=== PATIENT | female | born 1970 | race Caucasian/White ===

== ENCOUNTER → 2017-09-16 07:02 | Outpatient (CLI) | payer BC, SELFPAY ==
--- NOTE | 2017-09-16 07:05 | BI_ITS ---
MAMMOGRAPHY - BILATERAL SCREENING 3-D ZEHRA SYNTHESIS REASON FOR EXAM: Female, 47 years old. Bilateral Screening 3-D tomosynthesis PERTINENT HISTORY: Family history breast carcinoma, mother age 55. TECHNIQUE: 2-D mammograms and 3-D Zehra synthesis of the breast (s) were performed. CAD was performed. COMPARISON: 10/14/2015, 09/10/2012 FINDINGS: The breast composition is composed of scattered fibroglandular density. No new asymmetric density, dominant mass, dense spiculated masses, abnormal clustered microcalcifications, architectural distortion, skin thickening or nipple retraction identified. Coarse benign-appearing calcifications. There has been no significant change since the prior study. BI/SCREENING MAMM (CAD), BILAT IMPRESSION: No mammographic signs of malignancy. Routine yearly mammograms recommended. ASSESSMENT CATEGORY: BIRADS Category 2: Benign. A letter regarding these results will be sent to the patient by the facility within 30 days. FOLLOW UP RECOMMENDATION: Yearly follow up mammogram recommended. (A) Negative results should not deter biopsy as a palpable lesion should be followed on clinical grounds and biopsy performed if clinically persistent for 3 months or increasing size. Approximately 10% of breast cancers are not detected by mammography. A normal mammogram should not delay biopsy of a clinically suspicious abnormality. Electronically Signed: Bubba Gray, at 20:17 EDT Tel , Service support ,
== END ==
PROVIDERS: Family Provider Internal Medicine; PCP Internal Medicine; Visit Provider Internal Medicine
DX: Z12.31 Encounter for screening mammogram for malignant neoplasm of breast (principal)
CPT/HCPCS: 77063; 77067

== ENCOUNTER → 2020-06-24 07:01 | Outpatient (CLI) | payer BC, SELFPAY ==
--- NOTE | 2020-06-24 07:04 | BI_ITS ---
MAMMOGRAPHY - BILATERAL SCREENING REASON FOR EXAM: Female, 49 years old. Routine annual screening examination. PERTINENT HISTORY: Mother with breast cancer. TECHNIQUE: Digital bilateral breast zehra (3D mammographic acquisition) in the CC and MLO projections. 2-D mediolateral oblique (MLO) and craniocaudad (CC) views of both breasts were obtained. CAD: Full Field Digital Mammography with Computer Added Detection was performed. COMPARISON: Comparison is made with prior study dated 09/16/2017 and 09/10/2012. FINDINGS: Breast Composition: There are scattered areas of fibroglandular density. There are no dominant masses or suspicious calcifications. No other significant abnormalities are identified. There has been no significant change since the prior study. BI/SCRN MAMM (CAD)W/ZEHRA BILAT IMPRESSION: Stable bilateral screening mammogram. Yearly follow-up mammogram recommended. (A) ASSESSMENT CATEGORY: BIRADS Category 2: Benign. A letter regarding these results will be sent to the patient by the facility within 30 days. Approximately 10% of breast cancers are not detected by mammography. A normal mammogram should not delay biopsy of a clinically suspicious abnormality. [id number] Electronically Signed: Jimmy Cruz MD at 9:02 EDT , Service support ,
--- NOTE | 2020-06-24 07:23 | ECHOD_ITS ---
Reason For Study: CHEST TIGHTNESS Procedure This was a 2D Doppler, Color Flow transthoracic echocardiogram. The exam was of adequate technical quality. Exam performed in department. Left Ventricle Normal LV size. Left ventricular systolic function is normal. The estimated ejection fraction is 60 %. Transmitral doppler flow suggestive of impaired relaxation of left ventricle. No regional wall motion abnormalities noted. Right Ventricle Normal RV size. Normal systolic function. Atria Normal left atrium. Normal right atrium. No doppler evidence for ASD. Mitral Valve There is no mitral annular calcification. Normal mitral valve. Mild (1+) mitral valve insufficiency. Tricuspid Valve Normal tricuspid valve. Mild (1+) tricuspid valve insufficiency. Right ventricular systolic pressure estimated to be 31 mmHg. Aortic Valve Trisinus/trileaflet aortic valve. Normal aortic valve. Pulmonic Valve The pulmonic valve is not well visualized. Great Vessels Normal sized aortic root. Pericardium/Pleural No pericardial effusion. MMode/2D Measurements & Calculations LVIDd: 4.6 cm IVSd: 0.71 cm Ao root diam: 3.0 cm LVIDs: 2.9 cm LVPWd: 0.72 cm RVDd: 3.1 cm FS: 38.1 % LAV(MOD-bp): 41.1 ml LVAd ap4: 27.2 cm2 LVAd ap2: 25.2 cm2 LAV(MOD-bp) Indexed: 21.1 ml/m2 LVLd ap4: 7.3 cm LVLd ap2: 7.3 cm LAV(MOD-sp2): 39.8 ml EDV(MOD-sp4): 85.7 ml EDV(MOD-sp2): 75.3 ml LAV(MOD-sp4): 42.1 ml EDV(sp4-el): 85.8 ml EDV(sp2-el): 73.7 ml LVAs ap4: 15.1 cm2 LVAs ap2: 13.6 cm2 LVLs ap4: 5.8 cm LVLs ap2: 5.9 cm ESV(MOD-sp4): 32.7 ml ESV(MOD-sp2): 27.1 ml ESV(sp4-el): 33.4 ml ESV(sp2-el): 26.6 ml EF(MOD-sp4): 61.9 % EF(MOD-sp2): 64.0 % EF(sp4-el): 61.0 % SV(MOD-sp4): 53.1 ml SV(MOD-sp2): 48.2 ml SV(sp4-el): 52.3 ml LA dimension(2D): 3.5 cm LA A4 area: 17.2 cm2 RA A4 area: 12.5 cm2 Time Measurements MV dec time: 0.23 sec Doppler Measurements & Calculations MV E max braxton: 77.5 cm/sec Lat Peak E' Braxton: 11.8 cm/sec Med Peak E' Braxton: 9.8 cm/sec MV A max braxton: 85.4 cm/sec E/E' lat: 6.6 E/E' med: 7.9 MV E/A: 0.91 Ao V2 max: 136.4 cm/sec LV V1 max: 107.3 cm/sec PA V2 max: 87.5 cm/sec Ao max P.4 mmHg LV V1 max P.6 mmHg TR max braxton: 265.5 cm/sec TR max P.3 mmHg ECHO/Echo Complete Interpretation Summary Left ventricular systolic function is normal. The estimated ejection fraction is 60 %. Mild (1+) mitral valve insufficiency. Mild (1+) tricuspid valve insufficiency. Right ventricular systolic pressure estimated to be 31 mmHg. Transmitral doppler flow suggestive of impaired relaxation of left ventricle Ordering Physician: Karishma Gutierrez Referring Physician: Karishma Gutierrez Performed By: Lakshmi Bradley, RDCS, RVT
== END ==
PROVIDERS: PCP Internal Medicine; Referring Provider Internal Medicine; Visit Provider Internal Medicine
DX: Z12.31 Encounter for screening mammogram for malignant neoplasm of breast (principal); R07.89 Other chest pain
CPT/HCPCS: 77063; 77067; 93306

== ENCOUNTER → 2020-09-05 17:14 | Outpatient (CLI) | payer BC, SELFPAY ==
[2020-09-05 14:47] VITALS: BMI 32.9
[2020-09-12 21:02] LABS: HPV APTIMA, High Risk Negative (Negative)
== END ==
PROVIDERS: PCP Internal Medicine; Referring Provider Nurse Practitioner Women's Health; Visit Provider Nurse Practitioner Women's Health
DX: Z12.4 Encounter for screening for malignant neoplasm of cervix (principal)
CPT/HCPCS: 87624; 88175; G0145

== ENCOUNTER → 2020-09-07 18:22 | Outpatient (CLI) | payer BC, SELFPAY ==
[2020-09-05 14:47] VITALS: BMI 32.9
--- NOTE | 2020-09-07 18:24 | US_ITS ---
STUDY: ULTRASOUND OF THE FEMALE PELVIS - COMPLETE REASON FOR EXAM: Female, 50 years old. ENLARGED UT-aub LMP: 08/28/2020. TECHNIQUE: Transabdominal and Transvaginal TECHNICAL QUALITY: Adequate. COMPARISON: None. FINDINGS: The uterus is anteverted and is tilted to the left side of the pelvis. The uterus measures 12.4 cm x 8.1 cm x 6 cm. Normal uterine cervix. The endometrium measures 15 mm in thickness, and is hyperechoic. 3 fibroids are seen. The largest is in the mid body of the uterus and measures 2.9 cm x 3.9 cm x 2.7 cm. I.U.D. - The patient does not have an I.U.D. The right ovary is visualized. The right ovary measures 3 cm x 2.4 cm x 1.3 cm. There is no right ovarian cyst or ovarian mass. There is no visualized right adnexal mass or complex lesion. There is normal arterial and normal venous vascularity. The left ovary is visualized. The left ovary measures 1.9 cm x 1.7 cm x 1.5 cm. There is no left ovarian cyst or ovarian mass. There is no visualized left adnexal mass or complex lesion. There is normal arterial and normal venous vascularity. There is no fluid in the cul-de-sac. The pre void volume of the bladder was 496 ml. US/Pelvic (Non ) IMPRESSION: Enlarged fibroid uterus. 3. Uterine fibroids. Electronically Signed: Jimmy Cruz MD at 21:41 EDT , Service support ,
--- NOTE | 2020-09-07 18:25 | US_ITS ---
STUDY: ULTRASOUND OF THE FEMALE PELVIS - COMPLETE REASON FOR EXAM: Female, 50 years old. ENLARGED UT-aub LMP: 08/28/2020. TECHNIQUE: Transabdominal and Transvaginal TECHNICAL QUALITY: Adequate. COMPARISON: None. FINDINGS: The uterus is anteverted and is tilted to the left side of the pelvis. The uterus measures 12.4 cm x 8.1 cm x 6 cm. Normal uterine cervix. The endometrium measures 15 mm in thickness, and is hyperechoic. 3 fibroids are seen. The largest is in the mid body of the uterus and measures 2.9 cm x 3.9 cm x 2.7 cm. I.U.D. - The patient does not have an I.U.D. The right ovary is visualized. The right ovary measures 3 cm x 2.4 cm x 1.3 cm. There is no right ovarian cyst or ovarian mass. There is no visualized right adnexal mass or complex lesion. There is normal arterial and normal venous vascularity. The left ovary is visualized. The left ovary measures 1.9 cm x 1.7 cm x 1.5 cm. There is no left ovarian cyst or ovarian mass. There is no visualized left adnexal mass or complex lesion. There is normal arterial and normal venous vascularity. There is no fluid in the cul-de-sac. The pre void volume of the bladder was 496 ml. US/Transvaginal Non- IMPRESSION: Enlarged fibroid uterus. 3. Uterine fibroids. Electronically Signed: Jimmy Cruz MD at 21:41 EDT , Service support ,
== END ==
PROVIDERS: PCP Internal Medicine; Visit Provider Nurse Practitioner Women's Health
DX: N85.2 Hypertrophy of uterus (principal)
CPT/HCPCS: 76830; 76856

== ENCOUNTER → 2020-09-26 11:55 | Outpatient (CLI) | payer BC, SELFPAY ==
[2020-09-26 10:40] VITALS: BMI 32.9
[2020-09-26 12:28] LABS: Absolute Lymphocyte Count 1.74 X10^3/uL (0.83-4.51); Absolute Neutrophil Count 4.4 X10^3/uL (2.0-7.7); Basophil# 0.04 X10^3/uL; Basophil% 0.6 % (0-1); Eosinophil# 0.08 X10^3/uL; Eosinophils% 1.2 % (0-5); Hematocrit 42.2 % (37-47); Hemoglobin 14.1 g/dL (12.0-15.0); Lymphocyte # 1.74 X10^3/ul (0.83-4.51); Lymphocyte % 25.5 % (19-41); Mean Corp Hgb Conc 33.4 g/dL (32-36); Mean Corpuscular Hgb 31.8 pg (27.0-32.0); Mean Platelet Vol. 9.5 fl (6.2-12.0); Monocyte# 0.55 X10^3/uL; Monocyte% 8.1 % (0-10); NRBC Flagged by Analyzer 0 % (0-5); Neutrophil % 64.3 % (47-70); Platelet Count 385 K/mm3 (150-450); RBC Distribution Width CV 12.5 % (11.6-14.6); RBC Distribution Width SD 43.8 fl (35.1-43.9); Red Blood Count 4.44 M/mm3 (4.2-5.4); White Blood Count 6.8 K/mm3 (4.4-11.0)
[2020-09-26 13:04] LABS: NATERA MAILED SPECIMEN
[2020-09-26 13:12] LABS: Thyroid Stim Hormone (TSH) 2.12 uIU/mL (0.358-3.74)
== END ==
PROVIDERS: PCP Internal Medicine; Referring Provider Obstetrics & Gynecology; Visit Provider Obstetrics & Gynecology
DX: N92.0 Excessive and frequent menstruation with regular cycle (principal); Z80.3 Family history of malignant neoplasm of breast; Z80.42 Family history of malignant neoplasm of prostate; Z80.0 Family history of malignant neoplasm of digestive organs
CPT/HCPCS: 36415; 84443; 85025

== ENCOUNTER 2020-11-08 10:01 | Day surgery (SDC) | payer BC, SELFPAY ==
[2020-09-26 10:40] VITALS: BMI 32.9
--- NOTE | 2020-11-03 12:04 | EKG12_ITS ---
Test Reason : PRE OP Blood Pressure : / mmHG Vent. Rate : 078 BPM Atrial Rate : 078 BPM P-R Int : 112 ms QRS Dur : 084 ms QT Int : 372 ms P-R-T Axes : 049 054 054 degrees QTc Int : 424 ms Normal sinus rhythm Normal ECG Confirmed by YOLANDA CAI, CARLOS ([id number]), newspaper photo editor SHANELL LINCOLN ([id number]) on 11/04/2020 1:19:33 PM Referred By: SARY Confirmed By:MICHELE GUERRERO MD
[2020-11-03 12:38] LABS: Absolute Lymphocyte Count 2.13 X10^3/uL (0.83-4.51); Basophil# 0.05 X10^3/uL; Basophil% 0.6 % (0-1); Eosinophil# 0.06 X10^3/uL; Eosinophils% 0.8 % (0-5); Hematocrit 42.7 % (37-47); Hemoglobin 14.6 g/dL (12.0-15.0); Lymphocyte # 2.13 X10^3/ul (0.83-4.51); Lymphocyte % 26.8 % (19-41); Mean Corp Hgb Conc 34.2 g/dL (32-36); Mean Corpuscular Hgb 32.4 pg (27.0-32.0); Mean Corpuscular Volume 94.9 fL (81-99); Mean Platelet Vol. 9.7 fl (6.2-12.0); Monocyte# 0.71 X10^3/uL; Monocyte% 8.9 % (0-10); NRBC Flagged by Analyzer 0 % (0-5); Neutrophil # 4.99 X10^3/uL (2.7-7.7); Neutrophil % 62.6 % (47-70); Platelet Count 378 K/mm3 (150-450); RBC Distribution Width CV 12.5 % (11.6-14.6); RBC Distribution Width SD 43.2 fl (35.1-43.9)
[2020-11-03 13:02] LABS: Magnesium 1.9 mg/dL (1.6-2.6)
[2020-11-03 13:05] LABS: ALB/GLOB Ratio 0.9 RATIO (0.9-2.4); AST(SGOT) 12 U/L (15-37); Alanine Aminotransfer ALT/SGPT 19 U/L (13-56); Albumin, Serum 3.4 g/dL (3.2-5.0); Alkaline Phosphatase 60 U/L (45-117); Anion Gap 3 (5-15); BUN 16 mg/dL (7-18); BUN/Creat Ratio 22.1 RATIO (10-20); Calcium,Total 9.4 mg/dL (8.5-10.1); Chloride 103 mmol/L (98-107); Creatinine, Serum 0.72 mg/dL (0.55-1.02); EST Glomerular Filtration Rate 90 mL/min (>60); Est Glom Filt Rate - Afr Amer 109 mL/min (>60); Globulin 3.9 g/dL (2.2-4.2); Glucose 104 mg/dL (74-106); Potassium 3.5 mmol/L (3.5-5.1); Protein, Total 7.3 g/dL (6.4-8.2); Sodium Level 136 mmol/L (136-145)
[2020-11-08] VITALS (8 sets, daily range): BP systolic 106–132; BP diastolic 57–87; PULSE 64–81; RESP 16–18; TEMP 35.8–37.3; O2SAT 97–100; BMI 32.5
--- NOTE | 2020-11-08 00:07 | PCM.HP.BLA ---
History and Physical Date of Admission: 11/08/20 Intake Vital Signs 10/28/20 14:05 Height 5 ft 5 in Weight: 195 lb BMI 32.4 BP 142/80 H Intake Visit Reasons: [facility] Is patient in pain?: No Allergies acetaminophen [From Percocet] Allergy (Verified 10/28/20 14:06) Hives amoxicillin Allergy (Verified 10/28/20 14:06) Hives Iodinated Contrast Media [Iodinated Contrast- Oral and IV Dye] Allergy (Verified 10/28/20 14:06) Laryngospasms oxycodone [From Percocet] Allergy (Verified 10/28/20 14:06) Hives Medications nebivolol 2.5 mg tablet 2.5 mg PO DAILY 10/28/20 [History Confirmed 10/28/20] Is last menstrual period known: No Patient : No : No [facility] Medical History (Updated 10/04/20 @ 15:36 by Deborah Yao) Abnormal uterine bleeding Genetic testing History of abnormal cervical Pap smear Surgical History S/P S/P cholecystectomy Family History Mother Breast cancer Father Myocardial infarction Grandmother CVA (cerebral vascular accident) Colon cancer Grandfather Prostate cancer Hypertension Social History Smoking Status: Never smoker alcohol intake: current details: occasionally substance use type: does not use caffeine: Yes what type of physical activity do you participate in: walking and weight training frequency: 3-4 times per week seatbelt use: always do you feel safe at home: Yes additional social history: Boyfriend HPI [facility] Details: SHEILA FINCH is a 50 year old who presents for preop visit, planning [facility] for enlarged fibroid uterus and abnormal uterine bleeding. Female Reproductive History Menopausal Symptoms: No hot flashes, No night sweats, No difficulty concentrating and No change in libido Pregancy History 3 Elective abortions Hx Para 3 Spontaneous abortions Hx # Term Pregnancies Ectopic pregnancies Hx # Pregnancies Multiple births # of living children Past Pregnancies Del. Date Name GA/Weeks Outcome Route Bth Weight Gen Labor Lgth Anesthesia Del Locatn Provider FOB Unknown [place] Unknown Elizabeth Unknown [place] ROS Const Constitutional: Denies night sweats, weight gain or weight loss ENT ENT: Reports system reviewed and no additional complaints, except as documented Cardio Card: Denies chest pain Resp Resp: Denies cough or dyspnea GI GI: Reports as per HPI; Denies constipation, nausea or vomiting : Reports as per HPI; Denies hot flashes, nipple discharge, vaginal discharge, vaginal dryness, vaginal odor or vaginal pruritus Musc Musc: Denies arthralgias, back pain or muscle weakness Skin Skin/Breast: Denies alopecia, change in hair, dry skin, breast mass, breast pain, breast skin changes or nipple discharge Neuro Neuro: Reports system reviewed and no additional complaints, except as documented Psych Psych: Reports system reviewed and no additional complaints, except as documented; Denies change in libido or difficulty concentrating Endo Endo: Denies cold intolerance, excessive sweating, heat intolerance or polydipsia Gagan/Lymph Hematologic/Lymphatic: Denies easy bleeding, Denies easy bruising and Denies lymphadenopathy Exam Const General: cooperative, healthy appearing, comfortable, no acute distress and well developed Orientation: alert [facility] Head: normal to inspection and normocephalic Ears: hearing grossly normal bilaterally and external ears normal Nose: external nose normal and nares normal Face and sinus: normal facial exam Neck Neck: normal visual inspection and no lymphadenopathy Thyroid: thyroid normal Chest Chest palpation & inspection: normal inspection of the chest Resp Effort & Inspection: normal respiratory effort Auscultation: clear to auscultation bilaterally Cardio Rate: regular rate Rhythm: regular rhythm Heart Sounds: S1 normal and S2 normal GI Inspection: normal to inspection and non-distended Palpation: soft and no hepatosplenomegaly General: bladder normal to palpation External Female Exam: normal external appearance and normal appearance of the urethra Urethra: normal appearance of the urethra, normal palpation and no discharge Speculum Exam - Vagina: normal appearance of the vagina and normal vaginal discharge Speculum Exam - Cervix: normal appearance of the cervix and nontender Bimanual Exam- Vagina & Uterus: uterine size normal, bladder normal to palpation, No tender, normal palpation, non-tender, enlarged (12-week size) and nodular Bimanual Exam- Adnexa, other: normal adnexae, adnexae mobile, no masses and normal Pelvic Support: normal Musc Other: gross motor intact no deficits, full bilateral strength Skin General: no rashes or lesions noted Neuro General: patient alert, patient awake, moves all extremities and no focal motor deficits Motor: muscle tone normal throughout Extrem General: normal to inspection and no pedal edema Psych Appearance: grossly normal Mental Status: mental status grossly normal Affect: normal affect Speech and Movement: speech and movement normal Coding Level of Care Code No Charge Diagnoses Abnormal uterine bleeding N93.9 Genetic testing Z13.79 Enlarged uterus N85.2 Assessment and Plan Assessment and Plan (1) Abnormal uterine bleeding: Status: Acute Comment: sec to fibroids, discussed medical vs surgical options, plan LAVH BS. unable to get EMB. cbc tsh ordered (2) Genetic testing: Status: Acute Comment: Empower nl (3) Enlarged uterus: Status: Acute Comment: 12 week size with 3 fibroids 3 cm and less Plan - Dr. Lorenza Denson MD: After discussing the patient's diagnosis and treatment plan options, patient wishes to proceed with surgical management. I have discussed with the patient the risks, benefits, and alternatives of the procedure which include but are not limited to risks of anesthesia, bleeding, infection, possible damage to bowel, bladder, or surrounding vasculature which could lead to additional surgery to evaluate any complications. Patient agrees to procedure and wishes to proceed. ACOG/uptodate references given for additional information regarding procedure. UPDATE- I have seen the patient and performed any clinically relevant updates to the history and physical exam. Lorenaz Denson MD
[2020-11-08] MEDS: Celecoxib 200 MG Capsule 400 MG PO (10:56)
[2020-11-08] MEDS: Phenazopyridine 95 MG Tablet 190 MG PO (10:56)
[2020-11-08] MEDS: Scopolamine 1mg/72hr Patch 1 PATCH TD (10:57)
[2020-11-08] MEDS: Gabapentin 600 MG Tablet PO (10:57)
[2020-11-08] MEDS: Acetaminophen 500 MG Tablet 1000 MG PO ×2 (10:57→18:08)
[2020-11-08] MEDS: dexAMETHasone 10 MG/ML Vial 8 MG IV (10:58)
[2020-11-08] MEDS: Enoxaparin 40 MG/0.4 ML Syringe SC (10:58)
[2020-11-08 10:59] LABS: Internal QC Validated? YES +Cl - CLEAR BKGD; Pregnancy, Urine Negative Negative
[2020-11-08 11:06] LABS: Bedside Glucose 108 mg/dL (70-110)
[2020-11-08] MEDS: Lactated Ringers 1,000 ML 100 ML IV ×3 (11:06→15:19)
--- NOTE | 2020-11-08 12:00 | HYST_PTH ---
PATIENT: SHEILA FINCH LOC: [facility] [place] U#:[id number] AGE/SX: 50/F ROOM: RE11/08/[address]: Dr. Lorenza Denson MD : 1970 BED: DIS: 11/09/2020 SPEC #: [id number] RECD: 11/08/20 15:34 STATUS: TED SOLIS #: [id number] URIEL: 11/08/20 12:[address]: Lorenza Denson DEPT: SURGICAL PATHOLOGY RECD BY: Roscoe Sharma ENTERED: 11/09/20 12:04 SP TYPE: HYSTERECT OTHR DR: Dr. Karishma Gutierrez DO Tissues: Uterus, NOS Procedures: Surgery Specimen Level V HEADER OPERATION: ERAS, hysterectomy, LAVH, salpingectomy PRE-OP DIAGNOSIS: Abnormal uterine bleeding, genetic testing, enlarged uterus, fibroids TISSUE SUBMITTED: Uterus, cervix and bilateral fallopian tubes MICROSCOPIC DIAGNOSIS Uterus, cervix and bilateral fallopian tubes, hysterectomy and bilateral salpingectomy: Cervix ? mild chronic cystic cervicitis. Endometrium ? secretory endometrium. Myometrium ? adenomyosis. - An intramural leiomyoma (1 cm in greatest dimension). Bilateral fallopian tubes - no pathologic diagnosis. SJ:rg 11/10/2020 MICROSCOPIC DESCRIPTION Slides are reviewed. GROSS DESCRIPTION Received in fixative is one container labeled with the patient's name and designated uterus, cervix and bilateral fallopian tubes. The specimen consists of a previously, partially opened hysterectomy specimen consisting of uterus with cervix and attached bilateral fallopian tubes. The uterus with cervix weighs 167 gm and measures 11 x 8 x 6 cm. The serosal surface is ortiz, glistening. The ectocervical mucosa is unremarkable. The external os contour cannot be assessed due to previously opened nature of the specimen. The endocervical canal measures 3.5 cm in length and the endocervical mucosa is ortiz, glistening and unremarkable. Sections of the cervix reveal a few cysts filled with mucoid material. The triangular endometrial cavity measures 6 cm in length and up to 3.5 cm in width. The endometrial cavity is distorted due to the presence of previously opened nature of the specimen. The endometrium measures 0.2 cm in thickness. Sections of the uterine wall reveal one nodular mass measuring 1 cm in greatest dimension. The uterine wall measures up to 3 cm in thickness. Sections reveal trabeculated cut surfaces suspicious for adenomyosis. The right fallopian tube measures 6 cm in length and 0.7 cm in diameter. Sections reveal unremarkable cut surfaces. The left fallopian tube measures 5 cm in length and up to 1 cm in diameter with similar appearance to right. Cfo Controller sections are submitted in nine cassettes as follows: 1 - anterior cervix, 2 - posterior cervix, 3 & 4 - anterior uterine wall, 5 & 6 - posterior uterine wall, 7 - nodular mass, 8 - right fallopian tube, 9 - left fallopian tube. / ANA MARIA:thuy 11/09/20 TC:5 CPT: 56416
[2020-11-08] MEDS: Cefazolin 2 GM in 0.9% Normal Saline 100 ML IV (12:29)
[2020-11-08] MEDS: Bupivacaine 0.25% 30 ML Vial (12:43)
[2020-11-08] MEDS: Vasopressin 20 UNITS/ML Vial (12:43)
--- NOTE | 2020-11-08 14:22 | RAD_ITS ---
STUDY: X-RAY - ABDOMEN/PELVIS REASON FOR EXAM: Female, 50 years old. PT HERE FOR PELVIC SURGERY. NEEDLE COUNT WAS INCORRECT. BEST PICTURES DUE TO KEEPING STERILE FIELD TECHNIQUE: Two AP supine views of the abdomen and pelvis. COMPARISON: None. FINDINGS: Postoperative air is seen throughout the abdomen and pelvis. A 4.99 cm metallic needle is seen in the right upper quadrant overlying the right side of the 11th vertebral body and a portion of the liver. Surgical clamps are seen overlying the pubic symphysis and lower pelvis. Normal visualized lung bases. Normal visualized osseous structures. RAD/Abdomen Single View IMPRESSION: * A 4.99 cm metallic needle is seen in the right upper quadrant overlying the right side of the 11th vertebral body and a portion of the liver. * Surgical clamps are seen overlying the pubic symphysis and lower pelvis. * Postoperative air is seen throughout the abdomen and pelvis. Electronically Signed: Bakari Perez MD at 23:02 EDT , Service support ,
--- NOTE | 2020-11-08 14:42 | OP.PCM_ITS ---
Problems Associated Problem List Diagnoses (1) Abnormal uterine bleeding: (2) Enlarged uterus: Report of Operation Pre-Operative Diagnosis: AUB Post-Operative Diagnosis: same Surgery/Procedure Performed:: LAVHBS Type of Anesthesia: General Specimen's removed: uterus, tubes Drains: starkey Fluids Replaced: crystalloid Description of Procedure: Patient received preoperative antibiotics and SCDs were on preoperatively. Patient was taken back to the operating room and placed in the dorsal lithotomy position. General anesthesia was induced and patient was prepped and draped in normal sterile fashion. Uterine manipulator was placed inside the uterus and Starkey catheter placed in the bladder. The umbilicus was grasped with towel clamps and an intraumbilical incision was made after injecting with quarter percent Marcaine and a Veress needle entered into the abdomen confirmed to be intra-abdominal with a low opening pressure. Abdomen was insufflated with CO2 gas and the Veress needle removed and the 5 mm trocar was placed under direct visualization without complication. Right and left lower quadrants were transilluminated and injected with quarter percent Marcaine and 5 mm ports placed under direct visualization. Pelvis was well visualized see operative findings for additional information. Bilateral fallopian tubes were identified and transected with the LigaSure device across the mesosalpinx to the level of the utero-ovarian ligament which was also transected with the LigaSure device.Extensive scar tissue was encountered and taken down sharply and with hydrodissection and monopolar energy. The broad ligament was opened up by transecting the round ligament bilaterally and skeletonizing the uterine vessels bilaterally and creating a bladder flap using the LigaSure device. The uterine arteries were transected bilaterally with good visualization of the bladder and the ureters were seen to be inferior lateral to the operative area. Attention was then paid to the vaginal portion of the procedure and the cervix was grasped with Leland clamps and circumferentially injected with dilute vasopressin. A circumferential incision was made and the vaginal mucosa was mobilized off posteriorly and the cul-de-sac entered into sharply and a longneck speculum placed. The anterior cul-de-sac was then identified and entered into sharply. The uterosacral ligaments were clamped cut and suture ligated with 0 Monocryl bilaterally followed by the cardinal ligaments which were clamped cut and suture ligated bilaterally with 0 Monocryl. The uterus serially descended and was removed without difficulty. Pelvic sidewall pedicles were checked and noted to have excellent hemostasis. The vagi nal mucosa was reapproximated incorporating the posterior peritoneum. This was reapproximated using 0 Vicryl [id number] sutures. Excellent hemostasis was noted. The cystoscopy was then performed and bilateral ureteral strong spray was noted and the bladder was noted to have no abnormality or lesions seen. Starkey catheter was replaced and then attention paid to the abdominal portion of the procedure again. The pelvis and cul-de-sac were well visualized and no significant active bleeding noted but some raw areas were seen on the peritoneum and therefore Sorin was applied. Pressure was taken down and the areas visualized and noted of excellent hemostasis. All ports were removed under direct visualization without complication and the abdomen was desufflated of air. The instruments were removed from the abdomen and the vaginal sweep was negative. Port sites on the abdomen were closed with 4-0 Monocryl interrupted sutures and Steri's and windows were applied. She was awoken and taken recovery in stable condition. Grafts/Implants Used: none Complications none Admit VTE Documentation VTE Present on Admission: No VTE Mechan Device Prophylaxis: SCD's VTE Pharm Prophylaxis ordered?: Yes Procedures Urinary/Genital 52xxx-59xxx: [id number] LAVH+BS/O <250gr Uterus
--- NOTE | 2020-11-08 14:45 | PCM.DC ---
Discharge Instructions Diet Discharge Diet: No restrictions Activity May resume sexual activity in: 6 weeks Weight Bearing Status: Full weight bearing Dressing / Incision Call your doctor if your incision/area has: Continuous Slow Oozing, Sudden Increased Bleeding, Increased Pain/ Swelling, Increased Redness and Foul Smelling Discharge Call your doctor if you observe: Fever of 101 or Higher, Using more than 1 pad per hour, Shortness of breath, Chest pain and Uncontrolled pain Suture Line Care: Avoid Pulling/Pushing and Avoid Pinching/Bending Remove Dressing in: 1 week (if present) Cleanse incision/area with: Soap & Water and Keep Dressing Clean & Dry Follow Up Care Please Follow Up With: Lorenza Denson MD When: Call to make an appointment with your doctor for a postop visit in 2 and 6 weeks. Test Results: Test results from this visit will be discussed in further detail at your follow-up appointment, if applicable. Discharge Plan Admission Primary Reason for Your Visit: hysterectomy Attending Provider: Lorenza Denson Primary Care Provider: Karishma Gutirerez Discharge Orders/Prescriptions Prescriptions: New naproxen 250 MG tablet 250 - 500 mg PO Q8H PRN PRN (Reason: MILD PAIN) Qty: 30 RF: 1 Continued nebivolol [Bystolic] 2.5 mg tablet 2.5 mg PO DAILY RF: 0 hydrochlorothiazide 25 mg tablet 25 mg PO DAILY RF: 0 Referrals / Follow Up: Karishma Gutierrez DO [Primary Care Provider] - Disposition Disposition (needs filled in before D/C Order can be placed): Home, Self Care
[2020-11-08] MEDS: Lactated Ringers 1,000 ML 40 ML IV (16:51)
[2020-11-08] MEDS: Lactated Ringers 1,000 ML 70 ML IV (18:08)
[2020-11-08] MEDS: Ketorolac 30 MG/ML Syringe IV (20:45)
[2020-11-08] MEDS: Docusate Sodium 100 MG Capsule PO (20:46)
[2020-11-09] MEDS: Acetaminophen 500 MG Tablet 1000 MG PO ×3 (00:25→11:27)
[2020-11-09] MEDS: Lactated Ringers 1,000 ML 70 ML IV (02:17)
[2020-11-09 02:46] VITALS: BP 111/44; PULSE 84; RESP 18; TEMP 36.7; O2SAT 98
[2020-11-09] MEDS: Ketorolac 30 MG/ML Syringe IV ×2 (02:53→09:05)
[2020-11-09 06:25] LABS: Hematocrit 33.5 % (37-47); Hemoglobin 11.5 g/dL (12.0-15.0); Mean Corp Hgb Conc 34.3 g/dL (32-36); Mean Corpuscular Hgb 32.7 pg (27.0-32.0); Mean Corpuscular Volume 95.2 fL (81-99); Mean Platelet Vol. 9.6 fl (6.2-12.0); Platelet Count 299 K/mm3 (150-450); RBC Distribution Width CV 12.8 % (11.6-14.6); RBC Distribution Width SD 44.7 fl (35.1-43.9); Red Blood Count 3.52 M/mm3 (4.2-5.4); White Blood Count 14.2 K/mm3 (4.4-11.0)
[2020-11-09 07:15] VITALS: O2SAT 93
--- NOTE | 2020-11-09 07:29 | PCM.PN.OB ---
Subjective Subjective Patient doing well without complaints. Tolerating PO. Ambulating without difficulty. Denies chest pain, shortness of breath, calf pain/swelling, fevers, chills, lightheadedness. Objective Data Objective Data Vital Signs: Vital Signs Temp Pulse Resp BP Pulse Ox 98.1 F 84 18 111/44 L 98 11/09/20 02:46 11/09/20 02:46 11/09/20 02:46 11/09/20 02:46 11/09/20 02:46 Oxygen Flow Rate (L/min) 6 Oxygen Delivery Method Room Air Weight: 195 lb 5.273 oz Body Mass Index (BMI) 32.5 Intake & Output: Intake and Output for Last 24 Hours 11/07/20 11/08/20 11/09/20 23:59 23:59 23:59 Intake Total 2665.5 / 3065.5 2697.17 / 2697.17 Output Total 300 / 525 425 / 425 Balance 2365.5 / 2540.5 2272.17 / 2272.17 Lab / Micro Data Result Diagrams: 11/09/20 06:05 11/03/20 12:19 Labs: Laboratory Results - last 24 hr 11/08/20 10:50: POC Glucose 108 11/08/20 10:54: Urine Test Negative 11/09/20 06:05: WBC 14.2 H, RBC 3.52 L, Hgb 11.5 L, Hct 33.5 L, MCV 95.2, MCH 32.7 H, MCHC 34.3, RDW Std Deviation 44.7 H, RDW Coeff of Rola 12.8, Plt Count 299, MPV 9.6 Radiography Diagnostic Testing: Radiology Impression KUB X-Ray 11/08/20 14:22 IMPRESSION: * A 4.99 cm metallic needle is seen in the right upper quadrant overlying the right side of the 11th vertebral body and a portion of the liver. * Surgical clamps are seen overlying the pubic symphysis and lower pelvis. * Postoperative air is seen throughout the abdomen and pelvis. Electronically Signed: Bakari Perez MD at 23:02 EDT , Service support , ROS Constitutional Constitutional: Reports systems reviewed and no addt'l complaints, except as documented Cardiovascular Cardiovascular: Reports systems reviewed and no addt'l complaints, except as documented Respiratory/Chest Respiratory/Chest: Reports systems reviewed and no addt'l complaints, except as documented Gastrointestinal Gastrointestinal: Reports systems reviewed and no addt'l complaints, except as documented Physical Exam Const alert, oriented x3 and no apparent distress HEENT Head and Scalp: atraumatic Resp normal respiratory effort GI soft to palpation and non-tender Assessment & Plan (1) S/P laparoscopic assisted vaginal hysterectomy (LAVH): COMMENT: fibroids AUB SM LAVHBS PLAN: patient is s/p lavh bs POD 1 1. routine ERAS protocol postop care- increase ambulation, encourage oral intake and oral control of pain. lovenox and scds for dvt prophylaxis, patient stable for discharge to home.
[2020-11-09] MEDS: Docusate Sodium 100 MG Capsule PO (09:04)
[2020-11-09] MEDS: Enoxaparin 40 MG/0.4 ML Syringe SC (09:05)
[2020-11-09 09:06] VITALS: BP 100/49; PULSE 84; RESP 18; TEMP 36.4; O2SAT 97
[2020-11-09 14:06] VITALS: BP 104/61; PULSE 56; RESP 16; TEMP 36.8; O2SAT 100
== END 2020-11-09 14:30 | disposition home or self-care (01) ==
LOC: SDC 10:01 → AC 10:01 → MS2 11-09 07:49
PROVIDERS: Anesthesiology; PCP Internal Medicine; Referring Provider Obstetrics & Gynecology; Visit Provider Obstetrics & Gynecology
PROC: 0UT9FZZ Resection of Uterus, Via Natural or Artificial Opening With Percutaneous Endoscopic Assistance (ICD-10-PCS; CPT 58552; principal; 2020-11-08 11:35)
DX: N93.9 Abnormal uterine and vaginal bleeding, unspecified (principal); D25.1 Intramural leiomyoma of uterus; N72 Inflammatory disease of cervix uteri; N85.2 Hypertrophy of uterus
CPT/HCPCS: 58552; 36415; 74018; 80053; 81025; 82962; 83735; 85025; 85027; 86850; 86900; 86901; 88307; 93005; J7120; J2405

== ENCOUNTER → 2020-11-29 12:43 | Outpatient (CLI) | payer BC, SELFPAY | PROVIDERS: PCP Internal Medicine; Referring Provider Nurse Practitioner Women's Health; Visit Provider Nurse Practitioner Women's Health | DX: T81.49XA Infection following a procedure, other surgical site, initial encounter (principal) | CPT/HCPCS: 87070; 87077; 87186; 87205 ==

== ENCOUNTER 2021-12-20 18:30 | Outpatient (RCR) | payer BC, SELFPAY ==
--- NOTE | 2021-11-13 08:42 | HP.PTEVAL ---
Patient's Visit Information SHEILA FINCH is a 51 year old F referred to Physical Therapy by Dr. Karishma Gutierrez DO with a diagnosis of It Band tendonitis R worse than L. Date of Evaluation: 11/13/21 Physical Therapist: JAYESH Garcia - Visit Plan Frequency: 2x /Week Duration: 6 Weeks Plan: 2X/ week for 6 weeks for R>L IT band light foam rolling, stretching of the IT band, piriformis, hamstring and when able may start some strengthening with good mechanics. HEP: stretching in chair 2 way pirformis, supine IT band and HS stretching with strap. - Subjective Pt R leg gets to aching so bad to the point it wakes up at night. Dr ran her hand down the side of her leg and it hurt so bad. And set her to PT and had a prescription for meloxicam and not sure that it is helping. She has aching in the back of her knees cause she is sitting a lot. At first she thought it was vericose veins. She has pain sometimes with walking but sometimes it feels better to walk around some. It is worse to lay on the R side or if she sits too long. Stairs: it bothers her some to do stairs but depends on how much her leg is bothering her. This all started 6 weeks ago. She can not remember doing anything in particular. - Pain R pain Pain Intensity (Out of 10): 3 - Objective Gait: Walks with slight decreased stance time on the R LE. B hip drop with gait. R hip flex 8.6# and L hip flex 7.1#. R knee ext 14.5# and L knee ext 17.7#. R knee flex 8.9# and L knee flex 11.5#. R hip abd 6.6# and L hip abd 8.9#. Palpation: tender along B IT band. B ankle eversion could be contributing to some IT band and HS pain. R IT band is very tight compared to the L and so is the R piriformis. Pt has very tight B HS - Balance/Special Test Scores Lower Extremity Functional Score: 59 - Goals Goal 1:: I HEP Goal Time Frame: 6-8 Weeks Goal 2:: Increase flexibility of the HS, piriformis, and IT band so she can decrease pain and cross legs and be able to lay on her R side without pain Goal Time Frame: 6-8 Weeks Goal 3:: Be able to sit for longer periods of time without having R hip pain. Goal Time Frame: 6-8 Weeks Goal 4:: Increase R LE strength (at time of the eval: R hip flex 8.6# and L hip flex 7.1#. R knee ext 14.5# and L knee ext 17.7#. R knee flex 8.9# and L knee flex 11.5#. R hip abd 6.6# and L hip abd 8.9#). Goal Time Frame: 6-8 Weeks - Rehabilitation Potential Rehabilitation Potential: Good - Anticipated Interventions Patient/Client Instruction: Educate patient on: Condition, Plan of Care For the Purpose of:: To decrease pain, To decrease swelling/inflammation, To increase ROM, To improve nutrient delivery to tissue, To improve muscle performance and motor function, To increase tolerance to activity/condition/position, To improve performance and independence with ADL's, To decrease level of supervision to perform tasks, To improve ability of physical actions for home/community/work/leisure, To improve gait and locomotor functions, To improve health of tissue, To decrease soft tissue restriction, To increase flexibility/ROM Therapeutic Exercise to Include: Strength training, Postural training, Flexibilty training, Gait and locomotor training, Neuromotor development, Passive ROM For the Purpose of:: To decrease pain, To increase ROM, To improve nutrient delivery to tissue, To increase oxygenation perfusion, To improve muscle performance and motor function, To improve ability to perform ADL's, To increase tolerance to activity/condition/position, To improve performance and independence with ADL's, To decrease level of supervision to perform tasks, To improve ability of physical actions for home/community/work/leisure, To improve gait and locomotor functions, To improve health of tissue, To decrease soft tissue restriction, To increase flexibility/ROM Functional Training to Include: Gait training For the Purpose of:: To improve gait and locomotor functions Manual Therapy Techniques to Include: Mobilization, Passive ROM, Soft tissue mobilization For the Purpose of:: To decrease pain, To increase ROM, To improve nutrient delivery to tissue, To improve muscle performance and motor function Thermo therapy (hot pack): Yes For the Purpose of:: To decrease pain, To increase ROM, To improve nutrient delivery to tissue Thank you for the opportunity to evaluate your patient. For Medicare and Medicare HMO plans, please review the plan of care and approve it. It will need to be FAXED BACK to us at [phone] for Medicare purposes. For Medicare only, by signing this I certify the plan of care. Please let me know if there are questions or concerns regarding this plan of care. Physician Signature: Date:
== END 2021-12-20 19:00 | disposition home or self-care (01) ==
LOC: PT 18:30
PROVIDERS: PCP Internal Medicine; Referring Provider Internal Medicine; Visit Provider Internal Medicine
DX: M76.31 Iliotibial band syndrome, right leg (principal); M76.32 Iliotibial band syndrome, left leg
CPT/HCPCS: 97110; 97161; 97530

== ENCOUNTER → 2023-10-17 | Outpatient (CLI) | payer BC, SELFPAY ==
[2023-10-17 10:16] LABS: Absolute Neutrophil Count 4.3 X10^3/uL (2.0-7.7); Basophil# 0.04 X10^3/uL; Basophil% 0.5 % (0-1); Eosinophil# 0.13 X10^3/uL; Eosinophils% 1.8 % (0-5); Hemoglobin 14.8 g/dL (12.0-15.0); Lymphocyte % 27.3 % (19-41); Mean Corp Hgb Conc 33.6 g/dL (32-36); Mean Corpuscular Hgb 32.4 pg (27.0-32.0); Mean Corpuscular Volume 96.3 fL (81-99); Mean Platelet Vol. 9.7 fl (6.2-12.0); Monocyte% 10.9 % (0-10); NRBC Flagged by Analyzer 0 % (0-5); Neutrophil # 4.33 X10^3/uL (2.7-7.7); Neutrophil % 59.2 % (47-70); Platelet Count 412 K/mm3 (150-450); RBC Distribution Width CV 12.4 % (11.6-14.6); RBC Distribution Width SD 43.8 fl (35.1-43.9); Red Blood Count 4.57 M/mm3 (4.2-5.4); White Blood Count 7.3 K/mm3 (4.4-11.0)
[2023-10-17 11:18] LABS: ALB/GLOB Ratio 0.8 RATIO (0.9-2.4); AST(SGOT) 11 U/L (15-37); Alanine Aminotransfer ALT/SGPT 24 U/L (13-56); Albumin, Serum 3.3 g/dL (3.2-5.0); Alkaline Phosphatase 63 U/L (45-117); Anion Gap 8 (5-15); BUN 16 mg/dL (7-18); BUN/Creat Ratio 23.1 RATIO (10-20); Calcium,Total 9.7 mg/dL (8.5-10.1); Chloride 104 mmol/L (98-107); Cholesterol 227 mg/dL (200); Creatinine, Serum 0.69 mg/dL (0.55-1.02); EST Glomerular Filtration Rate 94 mL/min (>60); Est Glom Filt Rate - Afr Amer 113 mL/min (>60); Glucose 108 mg/dL (74-106); High Density Lipoprotein 67 mg/dL; Potassium 3.9 mmol/L (3.5-5.1); Protein, Total 7.3 g/dL (6.4-8.2); Sodium Level 137 mmol/L (136-145); Triglycerides 88 mg/dL; Very Low Density Lipoprotein 18 mg/dL (5-40)
== END | disposition home or self-care (01) ==
PROVIDERS: PCP Nurse Practitioner Family; Referring Provider Nurse Practitioner Family; Visit Provider Nurse Practitioner Family
DX: Z00.01 Encounter for general adult medical examination with abnormal findings (principal)
CPT/HCPCS: 36415; 80053; 80061; 85025

== ENCOUNTER → 2023-11-05 | Outpatient (CLI) | payer BC, SELFPAY ==
--- NOTE | 2023-11-05 07:15 | BI_ITS ---
MAMMOGRAPHY - BILATERAL SCREENING REASON FOR EXAM: Female, 53 years old. Routine annual screening examination. PERTINENT HISTORY: Mother with breast cancer. TECHNIQUE: Digital bilateral breast zehra (3D mammographic acquisition) in the CC and MLO projections. 2-D mediolateral oblique (MLO) and craniocaudad (CC) views of both breasts were obtained. CAD: Full Field Digital Mammography with Computer Added Detection was performed. COMPARISON: Comparison is made with prior study June 24, 2020 and September 16, 2017. FINDINGS: Breast Composition: There are scattered areas of fibroglandular density. There are no dominant masses or suspicious calcifications. Stable bilateral fat-containing axillary lymph nodes. No other significant abnormalities are identified. There has been no significant change since the prior study. BI/SCRN MAMM (CAD)W/ZEHRA BILAT IMPRESSION: Stable bilateral screening mammogram. Yearly follow-up mammogram recommended. (A) ASSESSMENT CATEGORY: BIRADS Category 2: Benign. A letter regarding these results will be sent to the patient by the facility within 30 days. Approximately 10% of breast cancers are not detected by mammography. A normal mammogram should not delay biopsy of a clinically suspicious abnormality. [id number] Electronically Signed: Jimmy Cruz MD at 8:42 EDT ,
== END | disposition home or self-care (01) ==
LOC: OPBI 07:13
PROVIDERS: PCP Nurse Practitioner Family; Referring Provider Nurse Practitioner Family; Visit Provider Nurse Practitioner Family
DX: Z12.31 Encounter for screening mammogram for malignant neoplasm of breast (principal)
CPT/HCPCS: 77063; 77067

== ENCOUNTER 2023-11-21 09:17 | Day surgery (SDC) | payer BC, SELFPAY ==
[2023-11-21] VITALS (8 sets, daily range): BP systolic 111–127; BP diastolic 57–90; PULSE 70–85; RESP 16; TEMP 36.1–36.5; O2SAT 95–100; BMI 31.6
--- NOTE | 2023-11-21 | COLBX_PTH ---
PATIENT: SHEIAL FINCH LOC: EN U#:[id number] AGE/SX: 53/F ROOM: RE11/21/[address]: Dr. 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 Colonic polyp at splenic flexure #1, biopsy: Tubular adenoma. B. Colonic polyp at splenic flexure #2, biopsy: Tubular adenoma. C. Sigmoid colon polyp, biopsy: Tubular adenoma. D. Sigmoid mucosa, biopsy: No pathologic change. E. Rectal polyp, biopsy: Benign mucosal polyp with mucosal denudation and acute inflammation. See comment. 11/22/2023 COMMENT E. Neither hyperplastic nor adenomatous change is identified. Clinical correlation is suggested. MICROSCOPIC DESCRIPTION Slides are reviewed. GROSS DESCRIPTION A. Received in fixative is one container labeled with the patient's name and designated Colon polyp biopsy splenic flexure #1. The specimen consists of one irregular fragment of light ortiz soft tissue that measures 0.4 x 0.2 x 0.1 cm. The specimen is totally submitted in one cassette. B. Received in fixative is one container labeled with the patient's name and designated Colon polyp biopsy splenic flexure #2. The specimen consists of two irregular fragments of light ortiz soft tissue that in aggregate measure 0.5 x 0.4 x 0.1 cm. The specimen is totally submitted in one cassette. C. Received in fixative is one container labeled with the patient's name and designated Sigmoid colon polyp biopsy. The specimen consists of two irregular fragments of light ortiz soft tissue that in aggregate measure 0.4 x 0.2 x 0.1 cm. The specimen is totally submitted in one cassette. D. Received in fixative is one container labeled with the patient's name and designated Sigmoid mucosa biopsy. The specimen consists of one irregular fragment of light ortiz soft tissue that measures 0.2 x 0.2 x 0.1 cm. The specimen is totally submitted in one cassette. E. Received in fixative is one container labeled with the patient's name and designated Rectal polyp biopsy. The specimen consists of one irregular fragment of light ortiz soft tissue that measures 0.4 x 0.3 x 0.1 cm. The specimen is totally submitted in one cassette. SJ.mr 11/21/2023 TC:2 CPT:34975s7
--- NOTE | 2023-11-21 09:54 | PCM.PRE.AN2 ---
ASA Classification* ASA Classification ASA Classification: 2 Assessment & Plan Anesthesia* Anesthesia Assessment Anesthesia Assessment: Discussed sedation and/or anesthesia options, risks, benefits, and alternatives with patient/parents/legal guardian/POA. Questions invited. The patient/parents/legal guardian/POA seems to understand and agrees to proceed with anesthesia plan. Reviewed the physical assessment, medical history, allergy history and patient home medications list prior to surgery/procedure/anesthetic and documented any changes. Performed airway and anesthesia risk assessments. Anesthesia Type Anesthesia Type: MAC Anesthesia Focused Assessment* Temperature: 97.7 F Pulse Rate: 79 Blood Pressure: 127/78 Respiratory Rate: 16 Pulse Ox: 100 Airway Assessment Mouth opens: >3 cm Mallampati Score: II Focused Labs Anesthesia Preop lab: CBC WBC 7.3 K/mm3 (4.4-11.0) 10/17/23 07:04 RBC 4.57 M/mm3 (4.2-5.4) 10/17/23 07:04 Hgb 14.8 g/dL (12.0-15.0) 10/17/23 07:04 Hct 44.0 % (37-47) 10/17/23 07:04 Plt Count 412 K/mm3 (150-450) 10/17/23 07:04 CHEMISTRY Potassium 3.9 mmol/L (3.5-5.1) 10/17/23 07:04 Sodium 137 mmol/L (136-145) 10/17/23 07:04 Magnesium 1.9 mg/dL (1.6-2.6) 11/03/20 12:18 BUN 16 mg/dL (7-18) 10/17/23 07:04 Creatinine 0.69 mg/dL (0.55-1.02) 10/17/23 07:04 Glucose 118 mg/dL (74-106) H 11/14/23 08:25 POC Glucose 108 mg/dL (70-110) 11/08/20 10:50 TSH 2.12 uIU/mL (0.358-3.74) 09/26/20 12:03 COAG Urine Test Negative Negative 11/08/20 10:54 Pre-Assessment Diagnosis/Proposed Procedure Planned Operative Procedure(s): COLONOSCOPY-OA Anesthesia History Anesthesia History - professor/nurse anesthetist: Anesthesia History - professor/nurse anesthetist Hx Hospitalization No 11/19/23 09:08 Any Problems With Anesthesia No 11/19/23 09:08 Cholinesterase deficiency No 11/19/23 09:08 You/Your Family Experience No 11/19/23 09:08 fever (hyperthermia) with Relationship Recent Exposure to Contagious No 11/21/23 09:38 Disease Does patient have nerve No 11/19/23 09:08 stimulator Patient instructed to have device shut off --Does patient have Pacemaker No 11/21/23 09:38 or ICD? When Was Last Pacemaker Check QUESTION #4 FULL TEXT: You/Your Family Experience fever (hyperthermia) with Anesthesia Last Oral Intake Last Oral intake: Last Oral Intake NPO since 07:15 11/21/23 09:38 Meds taken in AM with sips of water? Meds patient instructed to take am of surgery PONV PONV - professor/nurse anesthetist: PONV - professor/nurse anesthetist Female Yes 11/19/23 09:08 HX of Motion Sickness No 11/19/23 09:08 HX of N/V After Surgery No 11/19/23 09:08 Non-Smoker Yes 11/19/23 09:08 Duration of Surgery greater No 11/19/23 09:08 than 60 minutes Number of Risk Factors 2 11/19/23 09:08 PONV Score Moderate Risk 11/19/23 09:08 Height & Weight Height & Weight: Anesthesia: Height & Weight Height 5 ft 4 in 11/21/23 09:38 Weight: 83.461 kg 11/21/23 09:38 Body Mass Index (BMI) 31.6 11/21/23 09:38 Respiratory Assessment Respiratory Assessment - professor/nurse anesthetist: Respiratory Tract Infection Hx - professor/nurse anesthetist Hx Respiratory Tract Infection No 11/19/23 09:08 STOP Sleep Apnea STOP Sleep Apnea - professor/nurse anesthetist: STOP Sleep Apnea - professor/nurse anesthetist Hx Hypertension Yes: CONTROLLED ON MED 11/19/23 09:08 Hx Sleep Apnea No 11/19/23 09:08 CPAP BIPAP Do you snore loudly (louder No 11/19/23 09:08 than talking or can be heard Do you often feel tired/ No 11/19/23 09:08 fatigued/ sleepy during daytime? Has anyone observed you stop No 11/19/23 09:08 breathing during sleep? STOP Results Negative 11/19/23 09:08 QUESTION #5 FULL TEXT : Do you snore loudly (louder than talking or can be heard through closed doors)? 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 Specify any problems Hx of Preganancy in last 3 No 11/19/23 09:08 Months Nurse Filling Out Transfusion VCHRISTIN 11/19/23 09:08 & Questions: Date: 11/19/23 11/19/23 09:08 Time: 09:09 11/19/23 09:08 Patient unable to answer at this time (ie. confused, unrespo /Reproduction History /Reproductive History - professor/nurse anesthetist: /Reproductive Hx- professor/nurse anesthetist Hx Now Gestational Age (in weeks): EDC: Hx Hx Para Hx Section SAB No 11/19/23 09:08 PFSH Medical History Family hx of colon cancer Postoperative wound infection Wears contact lenses Wears glasses Kidney stones History of edema History of echocardiogram Hypertension Genetic testing Abnormal uterine bleeding History of abnormal cervical Pap smear Home Medications ?Medication ?Instructions ?Recorded ?Last Taken ?Type nebivolol 2.5 mg tablet (Bystolic) 2.5 mg PO DAILY 10/28/20 Unknown History acetaminophen 325 mg capsule 325 mg PO ONCE PRN pain 11/17/20 Unknown History (Tylenol) [id number]-[id number]-[id number] tablet 1 tab PO QDAY 10/22/23 Unknown History phentermine 37.5 mg capsule 37.5 mg PO QDAY 10/22/23 Unknown History Allergy/AdvReac Type Severity Reaction Status Date / Time clindamycin Allergy Mild rash Verified 11/21/23 09:37 acetaminophen (From Percocet) Allergy Hives Verified 11/21/23 09:37 amoxicillin Allergy Hives Verified 11/21/23 09:37 clavulanic acid (From Allergy Hives Verified 11/21/23 09:37 Augmentin) Iodinated Contrast Media Allergy Laryngospas Verified 11/21/23 09:37 (Iodinated Contrast- Oral ms and IV Dye) oxycodone (From Percocet) Allergy Hives Verified 11/21/23 09:37 Family History Mother Breast cancer Father Myocardial infarction Grandmother CVA (cerebral vascular accident) Colon cancer At less than 60yrs Grandfather Prostate cancer Hypertension Surgical History H/O bilateral salpingectomy History of LAVH S/P laparoscopic assisted vaginal hysterectomy (LAVH) S/P cholecystectomy S/P Social History current occupational status: employed Smoking Status: Never smoker alcohol intake: current details: occasionally substance use type: does not use caffeine: Yes what type of physical activity do you participate in: walking and weight training frequency: 3-4 times per week seatbelt use: always do you feel safe at home: Yes additional social history: Boyfriend Review of Systems (Anesthesia) ROS Narrative System reviewed and no additional complaints, except as documented.
--- NOTE | 2023-11-21 10:29 | HP.PCM_ITS ---
HPI - General General Date of Service: 11/21/23 HPI Narrative SHEILA FINCH, is a 53 F who presents for screening colonoscopy. [He/She] confirms [his/her] preappointment questionnaire that she has not experienced any change in her bowel habits-and particularly denies any notice of blood. She also confirms a family history of colon cancer maternal grandmother?diagnosed before the age of 60. Lastly she confirms that her prep was completed successfully and that her output is now clear. [facility] Medical History Family hx of colon cancer Postoperative wound infection Wears contact lenses Wears glasses Kidney stones History of edema History of echocardiogram Hypertension Genetic testing Abnormal uterine bleeding History of abnormal cervical Pap smear Home Medications ?Medication ?Instructions ?Recorded ?Last Taken ?Type nebivolol 2.5 mg tablet (Bystolic) 2.5 mg PO DAILY 10/28/20 Unknown History acetaminophen 325 mg capsule 325 mg PO ONCE PRN pain 11/17/20 Unknown History (Tylenol) [id number] tablet 1 tab PO QDAY 10/22/23 Unknown History phentermine 37.5 mg capsule 37.5 mg PO QDAY 10/22/23 Unknown History Allergy/AdvReac Type Severity Reaction Status Date / Time clindamycin Allergy Mild rash Verified 11/21/23 09:37 acetaminophen (From Percocet) Allergy Hives Verified 11/21/23 09:37 amoxicillin Allergy Hives Verified 11/21/23 09:37 clavulanic acid (From Allergy Hives Verified 11/21/23 09:37 Augmentin) Iodinated Contrast Media Allergy Laryngospas Verified 11/21/23 09:37 (Iodinated Contrast- Oral ms and IV Dye) oxycodone (From Percocet) Allergy Hives Verified 11/21/23 09:37 Family History Mother Breast cancer Father Myocardial infarction Grandmother CVA (cerebral vascular accident) Colon cancer At less than 60yrs Grandfather Prostate cancer Hypertension Surgical History H/O bilateral salpingectomy History of LAVH S/P laparoscopic assisted vaginal hysterectomy (LAVH) S/P cholecystectomy S/P Social History current occupational status: employed Smoking Status: Never smoker alcohol intake: current details: occasionally substance use type: does not use caffeine: Yes what type of physical activity do you participate in: walking and weight training frequency: 3-4 times per week seatbelt use: always do you feel safe at home: Yes additional social history: Boyfriend Past Medical/Surgical History Planned Operation Planned Operative Procedure(s): COLONOSCOPY-OA Previous Hospitalizations/Surgeries HX Hospitalizations: No Any Problems With Anesthesia: No You/Your Family Experience Fever (Hyperthermia) With Anes: No Cholinesterase deficiency: No Cardiovascular Hx Chest Pain within Last 2 months: Yes Hx of Irregular Heartbeat and/or Afib: No Hx Heart Attack: No Hx Hypertension: Yes (CONTROLLED ON MED) Hx Cardiac Surgery/Stents/Etc.: No Hx Pain in Legs when Walking/Leg Cramps: Yes (occasionally) Respiratory Hx Chronic Obstructive Pulmonary Disease (COPD): No Hx Emphysema: No Hx Sleep Apnea: No Hx Respiratory Tract Infection/Cold (presently): No Do You Snore Loudly (louder than talking or can be heard): No Do You Often Feel Tired/ Fatigued/ Sleepy Dring Daytime?: No Has Anyone Observed You Stop Breathing During Sleep?: No Result (for STOP score): Negative Hx Smoking: No Smoking Status: Never smoker Gastrointestinal Hx Gastrointestinal Bleed: No Hx Ulcer: No Hx Unplanned Weight Loss of 20#: No Neurological Hx Seizures: No Hx Multiple Sclerosis: No Hx Parkinson's Disease: No Does patient have nerve stimulator: No Blood Disorder Hx Hepatitis: No Hx Cirrhosis: No Hx Anemia: No Hx Blood Disorders: No Genitourinary Hx Renal Disease: No Hx Dialysis: No Musculoskeletal Hx Arthritis: No Hx Rheumatoid Arthritis: No Endocrine Hx Diabetes: No Thyroid Disease: No Psycho/Social Hx Substance Use: No Hx Alcohol Use: No Hx Anxiety: No Hx Depression: No Hx Dementia: No Miscellaneous Hx Cancer: No Recent Exposure to Contagious Disease: No Allergies clindamycin Allergy (Mild, Verified 11/21/23 09:37) rash acetaminophen (From Percocet) Allergy (Verified 11/21/23 09:37) Hives amoxicillin Allergy (Verified 11/21/23 09:37) Hives hives clavulanic acid (From Augmentin) Allergy (Verified 11/21/23 09:37) Hives Iodinated Contrast Media (Iodinated Contrast- Oral and IV Dye) Allergy (Verified 11/21/23 09:37) Laryngospasms oxycodone (From Percocet) Allergy (Verified 11/21/23 09:37) Hives Paternal: Family History Mother Breast cancer Father Myocardial infarction Grandmother CVA (cerebral vascular accident) Colon cancer At less than 60yrs Grandfather Prostate cancer Hypertension No pertinent history Discharge Is Pt Admitted From a Prison, or a Alf: No After D/C, Where Do you Plan to Go: Return Home Vital Signs Vital Signs Vital Signs: 11/21/23 09:38 11/21/23 09:38 11/21/23 09:54 Temperature 97.7 F L 97.7 F L Temperature Source Temporal Pulse Rate 79 79 Respiratory Rate 16 16 Respiratory Pattern Normal Blood Pressure 127/78 H 127/78 H Blood Pressure Mean 94 Blood Pressure Source Monitor Blood Pressure Position Semi-Fowlers Blood Pressure Location Left Arm Pulse Ox 100 100 Oxygen Delivery Method Room Air Weight Weight: 184 lb Body Mass Index (BMI) 31.6 Physical Exam Const alert, oriented x3 and no apparent distress General Appearance: cooperative GI GI Narrative: Nondistended, soft, nontender to palpation x 4 quadrants Assessment & Plan Assessment/Plan (1) Encounter for screening for malignant neoplasm of colon: PLAN: Patient presents for screening colonoscopy. She has completed a prep for today's procedure and confirms the preprocedure questionnaire which signifies she has a modestly increased risk of colon cancer on the basis of a maternal grandmother who was diagnosed before the age of 60. Personally, she denies any concerns with her GI habits. All review of the procedure was given and patient and her deny any further questions. Will now proceed to the endoscopy suite for screening colonoscopy as scheduled. Surgery Risks - Colonoscopy Risks Include but are not Limited To: Risks include but are not limited to: Bleeding, perforation requiring further surgery, inability to complete colonoscopy requiring barium enema.
--- NOTE | 2023-11-21 11:19 | PCM.POST.ANE ---
Anesthesia: Postop Eval I Current Vital Signs Temperature: 97 F Pulse Rate: 71 Blood Pressure: 117/57 Respiratory Rate: 16 Pulse Ox: 100 Oxygen Delivery Method: Room Air Assessment Airway patent: Yes Spontaneous unlabored respirations: Yes Mental status: Asleep nausea: No Vomiting: No Anesthesia Complication: No Fluid Hydration Crystalloid volume administer (ml): 60 Total IV fluid infused: 60 Progress Note Anesthesia document: Postop Eval 1 completed: Yes
--- NOTE | 2023-11-21 11:21 | OP.CCLET_ITS ---
11/21/2023 Lorena Persaud Re : Colonoscopy procedure for Marlena Reyesr Amado This procedure was performed on November. My impressions and recommendations are as follows: Impressions : - Four 3 to 5 mm, non-bleeding polyps in the rectum, in the sigmoid colon and at the splenic flexure. Biopsied. - Congested mucosa in the sigmoid colon. Biopsied. - The examination was otherwise normal on direct and retroflexion views. Recommendations : - Discharge patient to home (via wheelchair). - Resume previous diet today. - No aspirin, ibuprofen, naproxen, or other non-steroidal anti-inflammatory drugs for 2 days after biopsy. - Await pathology results. - Repeat colonoscopy date to be determined after pending pathology results are reviewed for surveillance based on pathology results. - Telephone my office for pathology results in 1 week. My findings are described in the full procedure note, which is enclosed. If I can be of further assistance, please feel free to contact me at Doctor phone number(s): , Work: . Sincerely, Fredis Vasques MD 11/21/2023 11:20:37 AM This report has been signed electronically.
--- NOTE | 2023-11-21 11:21 | OP.COLON_ITS ---
Patient Name: Marlena Dockery Procedure Date: 11/21/2023 10:27 AM Date of : 1970 Age: 53 Procedure: Colonoscopy Indications: Screening for colon cancer: Family history of colon polyps in distant relative(s) before age 60, Screening for colon cancer: Family history of colorectal cancer in distant relative(s) before age 60 Providers: Fredis Vasques MD Referring MD: Fredis Vasques MD Medicines: See the Anesthesia note for documentation of the administered medications Patient Profile: Last Colonoscopy: none. The patient's first colonoscopy is today. Complications: No immediate complications. Estimated blood loss: Minimal. Procedure: Pre-Anesthesia Assessment: - The heart rate, respiratory rate, oxygen saturations, blood pressure, adequacy of pulmonary ventilation, and response to care were monitored throughout the procedure. After I obtained informed consent, the scope was passed under direct vision. Throughout the procedure, the patient's blood pressure, pulse, and oxygen saturations were monitored continuously. The Colonoscope was introduced through the anus and advanced to the cecum, identified by palpation. The colonoscopy was somewhat difficult due to significant looping and a tortuous colon. Successful completion of the procedure was aided by changing the patient to a supine position and straightening and shortening the scope to obtain bowel loop reduction. The patient tolerated the procedure well. The quality of the bowel preparation was good. Scope In: 10:40:48 AM Scope Withdrawal Time 0 hours 15 minutes 25 seconds Scope Out: 11:12:31 AM Total Procedure Duration Time 0 hours 31 minutes 43 seconds Findings: The perianal and digital rectal examinations were normal. Pertinent negatives include normal sphincter tone. Four semi-sessile, non-bleeding polyps were found in the rectum, sigmoid colon and splenic flexure. The polyps were 3 to 5 mm in size. Biopsies were taken with a cold forceps for histology. Estimated blood loss was minimal. An area of mildly congested mucosa was found in the sigmoid colon. Biopsies were taken with a cold forceps for histology. Estimated blood loss was minimal. The exam was otherwise without abnormality on direct and retroflexion views. Impression: - Four 3 to 5 mm, non-bleeding polyps in the rectum, in the sigmoid colon and at the splenic flexure. Biopsied. - Congested mucosa in the sigmoid colon. Biopsied. - The examination was otherwise normal on direct and retroflexion views. Recommendation: - Discharge patient to home (via wheelchair). - Resume previous diet today. - No aspirin, ibuprofen, naproxen, or other non-steroidal anti-inflammatory drugs for 2 days after biopsy. - Await pathology results. - Repeat colonoscopy date to be determined after pending pathology results are reviewed for surveillance based on pathology results. - Telephone my office for pathology results in 1 week. Procedure Code(s): --- Professional --- 86751, Colonoscopy, flexible; with biopsy, single or multiple Diagnosis Code(s): --- Professional --- Z12.11, Encounter for screening for malignant neoplasm of colon Z83.71, Family history of colonic polyps Z80.0, Family history of malignant neoplasm of digestive organs D12.8, Benign neoplasm of rectum D12.5, Benign neoplasm of sigmoid colon D12.3, Benign neoplasm of transverse colon (hepatic flexure or splenic flexure) K63.89, Other specified diseases of intestine CPT copyright 2021 [employer]. All rights reserved. The codes documented in this report are preliminary and upon carry in worker review may be revised to meet current compliance requirements. Fredis Vasques MD 11/21/2023 11:20:37 AM This report has been signed electronically. Number of Addenda: 0 Note Initiated On: 11/21/2023 10:27 AM
== END 2023-11-21 12:08 | disposition home or self-care (01) ==
LOC: EN 09:17 → AC 09:19
PROVIDERS: PCP Nurse Practitioner Family; Referring Provider Surgery; Visit Provider Surgery
PROC: 0DJD8ZZ Inspection of Lower Intestinal Tract, Via Natural or Artificial Opening Endoscopic (ICD-10-PCS; CPT 45378; principal; 2023-11-21 10:10)
DX: Z12.11 Encounter for screening for malignant neoplasm of colon (principal); K63.89 Other specified diseases of intestine; D12.5 Benign neoplasm of sigmoid colon; D12.3 Benign neoplasm of transverse colon; K62.1 Rectal polyp; Z80.0 Family history of malignant neoplasm of digestive organs; Z83.719 Family history of colon polyps, unspecified
CPT/HCPCS: 45380; 88305; A4216; J2405

== ENCOUNTER → 2024-12-04 | Outpatient (CLI) | payer BC, SELFPAY ==
[2024-12-04 10:03] LABS: Hematocrit 42.1 % (37-47); Hemoglobin 14.6 g/dL (12.0-15.0); Immature Granulocytes Count 0.010 X10^3/uL (0.0-0.0); Mean Corp Hgb Conc 34.7 g/dL (32-36); Mean Corpuscular Volume 93.3 fL (81-99); Mean Platelet Vol. 9.8 fl (6.2-12.0); NRBC Flagged by Analyzer 0 % (0-5); Platelet Count 355 K/mm3 (150-450); RBC Distribution Width CV 12.5 % (11.6-14.6); RBC Distribution Width SD 43.1 fl (35.1-43.9); Red Blood Count 4.51 M/mm3 (4.2-5.4); White Blood Count 7.0 K/mm3 (4.4-11.0)
[2024-12-04 10:55] LABS: AST(SGOT) 12 U/L (<=31); Alanine Aminotransfer ALT/SGPT 11 U/L (<=34); Albumin, Serum 4.1 g/dL (3.5-5.0); Alkaline Phosphatase 61 U/L (35-104); Anion Gap 11 (5-15); BUN 14 mg/dL (4-19); BUN/Creat Ratio 20.4 RATIO (10-20); Calcium,Total 9.6 mg/dL (7.6-11.0); Carbon Dioxide 27.0 mmol/L (21.0-32.0); Chloride 100 mmol/L (98-108); Cholesterol 168 mg/dL (<=200); Globulin 2.9 g/dL (2.2-4.2); Glucose 97 mg/dL (70-99); Low Density Lipoprotein Calc. 90 mg/dL; Potassium 4.2 mmol/L (3.3-5.1); Triglycerides 72 mg/dL; Very Low Density Lipoprotein 14 mg/dL (5-40); Vitamin B12 575 pg/mL (180-914); Vitamin D,25 Hydroxy 50.3 ng/mL (30-100); cholesterol:hdl ratio screen 2.63
== END | disposition home or self-care (01) ==
LOC: MTLAB 07:09
PROVIDERS: PCP Nurse Practitioner Family; Referring Provider Nurse Practitioner Family; Visit Provider Nurse Practitioner Family
DX: Z00.01 Encounter for general adult medical examination with abnormal findings (principal); R53.83 Other fatigue
CPT/HCPCS: 36415; 80053; 80061; 82306; 82607; 84439; 84443; 85025

== ENCOUNTER → 2024-12-16 | Outpatient (CLI) | payer BC, SELFPAY ==
--- NOTE | 2024-12-16 07:15 | BI_ITS ---
EXAM: BI/SCRN MAMM (CAD)W/ZEHRA BILAT
== END | disposition home or self-care (01) ==
LOC: OPBI 07:14
PROVIDERS: PCP Nurse Practitioner Family; Referring Provider Nurse Practitioner Family; Visit Provider Nurse Practitioner Family
DX: Z12.31 Encounter for screening mammogram for malignant neoplasm of breast (principal)
CPT/HCPCS: 77063; 77067